=== PATIENT | female | born 1995 | race American Indian/Alaskan Native ===

== ENCOUNTER 2016-11-11 17:26 | Emergency (ER) | payer OTHER ==
[2016-11-11 17:47] VITALS: BP 136/92; PULSE 85; RESP 18; TEMP 98.2; O2SAT 100
[2016-11-11 18:28] LABS: RBC URINE 2 /hpf (0-3); URINE BACTERIA OCC (<OCC); URINE BILIRUBIN NEGATIVE (NEGATIVE); URINE BLOOD NEGATIVE (NEGATIVE); URINE COLOR Yellow (YELLOW); URINE GLUCOSE (UA) NORMAL (Normal); URINE KETONE NEGATIVE (NEGATIVE); URINE LEUKOCYTE ESTERASE NEG Leu/uL (Negative); URINE PROTEIN NEGATIVE (NEGATIVE); WBC URINE 1 /hpf (0-5)
--- NOTE | 2016-11-11 18:41 | C.PDOC ---
History Of Present Illness A 21 year old female presents to the emergency room with complaints of an intermittent chronic sided headache for 8 years. Patient describes the headache as a throbbing sensation. this is the same headache she has had in the past, no new symptoms. Patient has seen a neurologist in the past and had a negative CT scan/MRI. Patient reports that she has her doctor her prescribed her Naprosyn that she takes with transient relief. Patient has a history of hypertension and is currently on blood pressure medications. Patient denies any dizziness, vision changes, fever, chills, chest pain, shortness of breath, or any other complaints. (-) diplopia Time Seen by Provider: 11/11/16 18:24 Chief Complaint (Nursing): Headache History Per: Patient History/Exam Limitations: no limitations Onset/Duration Of Symptoms: Other (8 years) Current Symptoms Are (Timing): Still Present Severity: Mild Quality: Burning, "Pain", Other (Throbbing) Preceeding Symptoms: None. denies: Visual Disturbances, Known Migraine Symptoms Associated Symptoms: denies: Photophobia, Blurred Vision, Nausea, Vomiting Recent travel outside of the [place]: No Past Medical History Reviewed: Historical Data, Nursing Documentation, Vital Signs Vital Signs: Last Vital Signs Temp 98.2 F 11/11/16 17:44 Pulse 85 11/11/16 17:44 Resp 18 11/11/16 17:44 BP 136/92 H 11/11/16 17:44 Pulse Ox 100 11/11/16 19:54 - Medical History PMH: Asthma, HTN Surgical History: Tonsillectomy Family History: States: No Known Family Hx - Social History Hx Alcohol Use: No Hx Substance Use: No Review Of Systems Except As Marked, All Systems Reviewed And Found Negative. Constitutional: Negative for: Fever, Chills Eyes: Negative for: Vision Change Cardiovascular: Negative for: Chest Pain Respiratory: Negative for: Shortness of Breath Gastrointestinal: Negative for: Nausea, Vomiting, Diarrhea Neurological: Positive for: Headache. Negative for: Dizziness Physical Exam - Physical Exam Appears: Non-toxic, No Acute Distress Skin: Warm, Dry, No Rash Head: Atraumatic, Normacephalic Eye(s): bilateral: Normal Inspection, PERRL, EOMI Ear(s): Bilateral: Normal Nose: Normal, No Discharge Oral Mucosa: Moist Neck: Normal ROM, No Midline Cervical Tenderness, No Paracervical Tenderness, Supple Chest: Symmetrical Cardiovascular: Rhythm Regular Respiratory: Normal Breath Sounds, No Rales, No Rhonchi, No Wheezing Gastrointestinal/Abdominal: Soft, No Tenderness, No Guarding, No Rebound Back: No CVA Tenderness, No Vertebral Tenderness Extremity: Normal ROM, No Tenderness Neurological/Psych: Oriented x3, Normal Speech, Normal Cognition, Normal Motor, Normal Sensation ED Course And Treatment O2 Sat by Pulse Oximetry: 100 Progress Note: Patient has had chronic headaches for the last 8 years since the age of 14. Patient was seen by a neurologist and had negative imaging years ago. Discussed risks and benefits of having a CT today. The patient is acting normally and has a normal neurological exam and has had the same headache intermittently for 8 years. The likelihood of finding a lesion needing intervention on the CT scan is extremely low. Patient agrees that at this time no CT scan will be done. If there is any change or new concern, the patient will return as soon as possible to the ED for further evaluation. Patient will be given Fioricet. On reassessment, patient is resting comfortably, is tolerating PO, and pain has improved. Patient has no neurologic deficit, photophobia, rash, fever, or nuchal rigidity. Patient was instructed to follow up with physician/clinic in 1-2 days. Disposition - Disposition Referrals: Willian Bustamante MD [Staff Provider] - Disposition: HOME/ ROUTINE Disposition Time: 18:40 Condition: STABLE Additional Instructions: Follow up with your primary medical doctor or clinic in 2-5 days for further evaluation. Take medications as prescribed. Return to the emergency department at any time if symptoms persist or worsen. Prescriptions: Acetaminophen/Butalbital/Caf [Fioricet] 1 tab PO TID PRN #15 tab PRN Reason: Headache Instructions: Acute Headache (ED) - Clinical Impression Clinical Impression: Headache - Scribe Statement The provider has reviewed the documentation as recorded by the Foxibtrinidad Samuel All medical record entries made by the Foxibe were at my direction and personally dictated by me. I have reviewed the chart and agree that the record accurately reflects my personal performance of the history, physical exam, medical decision making, and the department course for this patient. I have also personally directed, reviewed, and agree with the discharge instructions and disposition.
[2016-11-11] MEDS ORDERED: Apap-Butalbital-Caffeine 325-50-40mg Tab PO STA (19:02)
[2016-11-11] MEDS ORDERED: Apap-Butalbital-Caffeine 325-50-40mg Tab ONE (19:06)
== END 2016-11-11 19:08 | disposition home or self-care (01) ==
LOC: C.ER 17:26
DX: R51 Headache (principal)

== ENCOUNTER 2016-12-15 22:51 | Emergency (ER) | payer OTHER ==
[2016-12-15 23:15] VITALS: BP 133/81; PULSE 81; TEMP 98.8; O2SAT 100
[2016-12-16] MEDS ORDERED: Naproxen 550 mg Tab PO STA (00:02)
[2016-12-16] MEDS ORDERED: Naproxen 550 mg Tab PO ONE (00:07)
--- NOTE | 2016-12-16 00:24 | C.PDOC ---
History Of Present Illness A 21 y/o female with a Hx of migraine, c/o exacerbation of her chronic headache associated wih nausea. Pt was seen here a month ago for evaluation and was discharged with Fioricet. Pt comes in today stating that the medication is no longer helping. Pt denies dizziness, vision changes, fever, chills, chest pain, shortness of breath, weakness, or any other complaints. Pt notes this is the same headache she has had in the past, no new symptoms. Patient has seen a neurologist in the past and had a negative CT scan/MRI but was told by PMD to have a new neuro eval but still waiting on referral from PMD. Time Seen by Provider: 12/15/16 23:27 Chief Complaint (Nursing): Headache History Per: Patient History/Exam Limitations: no limitations Onset/Duration Of Symptoms: Persistent Current Symptoms Are (Timing): Still Present Severity: Mild Quality: Aching Preceeding Symptoms: Known Migraine Symptoms Associated Symptoms: denies: Blurred Vision Recent travel outside of the [place]: No Additional History Per: Patient Past Medical History Reviewed: Historical Data, Nursing Documentation, Vital Signs Vital Signs: Last Vital Signs Temp 98.8 F 12/15/16 23:11 Pulse 81 12/15/16 23:11 Resp 20 12/16/16 00:26 BP 133/81 12/15/16 23:11 Pulse Ox 100 12/16/16 01:16 - Medical History PMH: Asthma, HTN, Migraine Surgical History: Tonsillectomy Family History: States: Unknown Family Hx - Social History Hx Alcohol Use: No Hx Substance Use: No Review Of Systems Except As Marked, All Systems Reviewed And Found Negative. Constitutional: Negative for: Fever, Chills Eyes: Negative for: Vision Change Cardiovascular: Negative for: Chest Pain Gastrointestinal: Positive for: Nausea. Negative for: Vomiting, Diarrhea Neurological: Positive for: Headache. Negative for: Weakness, Dizziness Physical Exam - Physical Exam Appears: Well, Non-toxic, No Acute Distress, Other (Obese) Skin: Warm, Dry, No Rash Head: Atraumatic, Normacephalic Eye(s): bilateral: Normal Inspection, PERRL, EOMI Nose: Normal, No Discharge Oral Mucosa: Moist Neck: Normal ROM, Supple Neurological/Psych: Oriented x3, Normal Speech, Normal Cognition, Normal Motor, Normal Sensation, Other (No focal deficit) Gait: Steady ED Course And Treatment O2 Sat by Pulse Oximetry: 100 (RA) Pulse Ox Interpretation: Normal Progress Note: Impression: 21 y/o female c/o exacerbation of her chronic headache. Plans: Anaprox, Reglan, reassess. Patient is now comfortsbly chatting on her cell phone in no apparent distress. Pt has h/o chronic headaches for the last 8 years since the age of 14. Patient was seen by a neurologist and had negative imaging years ago. Discussed risks and benefits of having a CT today. The patient is acting normally and has a normal neurological exam and has had the same headache intermittently for 8 years. The likelihood of finding a lesion needing intervention on the CT scan is extremely low. Patient agrees that at this time no CT scan will be done. If there is any change or new concern, the patient will return as soon as possible to the ED for further evaluation. Patient will be given reglan and Anaprox. On reassessment, patient is resting comfortably, is tolerating PO, and pain has improved. Patient has no neurologic deficit, photophobia, rash, fever, or nuchal rigidity. Patient was instructed to follow up with physician/clinic in 1- 2 days. Disposition Counseled Patient/Family Regarding: Diagnosis, Need For Followup, Rx Given - Disposition Referrals: Teja Singh MD [Medical Doctor] - Disposition: HOME/ ROUTINE Disposition Time: 00:22 Condition: STABLE Additional Instructions: Please follwo up with PMD for neurology referral Take meds as prescribed' Return to ER if worse Prescriptions: Metoclopramide [Reglan] 1 tab PO TID PRN #14 tab PRN Reason: Nausea/Vomiting Naproxen [Naprosyn] 1 tab PO BID PRN #25 tab PRN Reason: Pain Instructions: Migraine Headache (ED) - Clinical Impression Clinical Impression: Migraine - Scribe Statement The provider has reviewed the documentation as recorded by the Foxibtrinidad nicolas All medical record entries made by the Foxibtrinidad were at my direction and personally dictated by me. I have reviewed the chart and agree that the record accurately reflects my personal performance of the history, physical exam, medical decision making, and the department course for this patient. I have also personally directed, reviewed, and agree with the discharge instructions and disposition.
[2016-12-16 00:27] VITALS: RESP 20
== END 2016-12-16 00:26 | disposition home or self-care (01) ==
LOC: C.ER 22:51
DX: G43.909 Migraine, unspecified, not intractable, without status migrainosus (principal)